=== PATIENT | female | born 1945 | race Caucasian/White ===

== ENCOUNTER 2016-04-21 10:37 | Emergency (ER) | payer MEDICARE, MEDICAID ==
[2016-04-21 10:47] VITALS: TEMP 97.8; BMI 34.9
[2016-04-21] MEDS ORDERED: NS 1,000 ML IV ONE (11:27)
[2016-04-21] MEDS ORDERED: ONDANSETRON HCL 4 MG/2 ML VIAL IV ONE (11:27)
[2016-04-21] MEDS ORDERED: MORPHINE 4 MG/ML INJECTION IV ONE (11:27)
[2016-04-21 12:00] LABS: MPV 8.4 fL (7.4-10.4)
[2016-04-21 12:10] LABS: BLOOD UREA NITROGEN 15 MG/DL (7-17); CALCIUM 9.4 MG/DL (8.4-10.2); CALCULATED OSMOLALITY 264 MOs/Kg (270-290); CHLORIDE 92 mEq/L (98-107); CPK TOTAL WITH POSSIBLE MB 27 IU/L (30-134); GLUCOSE 191 MG/DL (70-99); SODIUM LEVEL 134 mEq/L (137-146); TOTAL PROTEIN 7.9 G/DL (6.3-8.2)
[2016-04-21 12:11] LABS: PT-INR 1.2
[2016-04-21 12:44] LABS: SEG NEUTROPHIL 87 % (45-76); TOTAL CELL COUNT 100
--- NOTE | 2016-04-21 13:24 | DIRPT ---
CLINICAL DATA: Epigastric pain. nausea and vomiting. EXAM: CHEST 2 VIEW COMPARISON: None. FINDINGS: The heart size and mediastinal contours are within normal limits. Both lungs are clear. Mild lower thoracic spine degenerative disc disease noted. IMPRESSION: No active cardiopulmonary disease. Electronically Signed By: Brady Serna M.D. On: 04/21/2016 13:21
--- NOTE | 2016-04-21 13:36 | EDPRACDOC ---
<Braulio Kowlaski - Last Filed: 04/21/16 17:21> - General Information Information Source: Patient Mode Of Arrival: Ambulance - History of Present Illness Onset: last night HPI: PT PRESENTS WITH ABDOMINAL PAIN, NAUSEA AND VOMITING. STATES SHE ATE A HOT DOG LAST NIGHT (ALTHOUGH SHE KNOWS SHE SHOULDN'T EAT BC THEY UPSET HER STOMACH). SHE STATES AROUND 2AM SHE HAD NAUSEA AND THEN AROUND 6AM SHE BEGAN VOMITING AND HAS HAD MULTIPLE EPISODE OF VOMITING SINCE THAT TIME. PT WAS RECENTLY PLACED ON METFORMIN (3 WEEKS AGO) AND STATES THAT IN THE LAST WEEK SHE HAS BEEN HAVING LOW EPISODES WITH IN THE LAST WEEK. Symptoms Occured: Reports: Spontaneous Duration: Reports: Intermittent Emesis: Reports: Bilious Recent: Denies: Travel, Contact Exposure, Ingestion of ETOH, Ingestion of spoiled food, None, O Pain Quality: Reports: Aching, Burning Pain Severity: Moderate Pain Location: Reports: Epigastric : No History of: Denies: Abdominal Surgery, UTI, Ectopic, PID, Urolithiasis, Similar Pain (dx) Relevant History of: Denies: Abdominal Surgery, Diabetes, Contact Exposure, Hydrocephalus, HIV, Immunosuppression, Irritable Bowel Disease, Cystic Fibrosis , Lactose Intolerance, None, O Associated Signs & Symptoms: Reports: Nausea, Vomiting Oral Intake: Decreased Urinary Output: Normal <Hyacinth Pillai - Last Filed: 04/21/16 18:06> - General Information Chief Complaint: Nausea,Vomiting,Diarrhea Stated Complaint: RESP,GENERAL SICKNESS Time Seen by Provider: 04/21/16 10:41 Home Medications: Home Medications Atorvastatin Calcium [Lipitor] 10 mg PO QHS 01/05/16 Fluoxetine HCl [Prozac] 20 mg PO DAILY 01/05/16 Fluticasone Propionate [Flonase Allergy Relief] 1 spray JEROME DAILY PRN 01/05/16 Lisinopril/Hydrochlorothiazide [Lisinopril-Hctz 20-12.5 mg Tab] 2 tab PO DAILY 01/05/16 Meloxicam [Mobic] 7.5 mg PO DAILY 01/05/16 Alprazolam [Xanax] 0.5 - 1 mg PO Q8H PRN 04/21/16 Metformin HCl [Metformin HCl ER] 500 mg PO DAILY 04/21/16 Ondansetron [Zofran Odt] 4 mg PO Q6H PRN #20 tab.rapdis 04/21/16 Allergies/Adverse Reactions: Allergies Allergy/AdvReac Type Severity Reaction Status Date / Time codeine Allergy Itching Verified 04/21/16 10:47 - Treatment Prior to ED Arrival Reported Medications/Treatment HEALTH AND SAFETY COORDINATOR Treated With Medication HEALTH AND SAFETY COORDINATOR YES Medications HEALTH AND SAFETY COORDINATOR (Medication/ ZOFRAN 4 MG ORAL Dose/Time) <Braulio Kowalski - Last Filed: 04/21/16 17:21> - Treatment Prior to ED Arrival Reported Medications/Treatment HEALTH AND SAFETY COORDINATOR Treated With Medication HEALTH AND SAFETY COORDINATOR YES Medications HEALTH AND SAFETY COORDINATOR (Medication/ ZOFRAN 4 MG ORAL Dose/Time) <Hyacinth Pillai - Last Filed: 04/21/16 18:06> ED Past Medical History - History Reviewed Yes Nurses notes reviewed and agree except as marked - Patient Medical History Cardiac History: Reports: Hypertension, Hypercholesterolemia Respiratory History: Reports: COPD GI/ History: Reports: Diverticulosis Musculoskeletal History: Reports: Arthritis Psychological History: Reports: Anxiety. Denies: Depression Surgical History: Reports: Appendectomy, Cholecystectomy - Family Medical History Reports: Diabetes (mothers side of family), Cardiac Disorders (mother). Denies : Hypertension, Cancer, Stroke - Social Medical History Smoking Status: Never smoker <Hyacinth Pillai - Last Filed: 04/21/16 18:06> EDM Review of Systems - Review of Systems ROS Negative Except as Marked: Yes All systems reviewed and were negative except as marked <Hyacinth Pillai - Last Filed: 04/21/16 18:06> - Physical Exam Last recorded Vital Signs: Last Vital Signs Temp 97.8 F 04/21/16 10:43 Pulse 96 04/21/16 15:35 Resp 18 04/21/16 15:35 BP 152/71 04/21/16 15:00 Pulse Ox 92 04/21/16 15:35 Oxygen Pulse Oxygen Saturation 92 O2 Device Room Air Oxygen Flow Rate Fraction of Inspired Oxygen ( FIO2) <Braulio Kowalski - Last Filed: 04/21/16 17:21> - Physical Exam Constitutional: Alert. negative: Well appearing Oriented to: Time, Person, Place Last recorded Vital Signs: Last Vital Signs Temp 97.8 F 04/21/16 10:43 Pulse 88 04/21/16 12:58 Resp 18 04/21/16 12:58 BP 156/68 04/21/16 12:58 Pulse Ox 92 04/21/16 12:58 Oxygen Pulse Oxygen Saturation 92 O2 Device Room Air Oxygen Flow Rate Fraction of Inspired Oxygen ( FIO2) - HEENT Head: Normal ( normocephalic) Eye Exam: Normal (PERRL, EOMI, Sclera white) Oropharynx: Normal (Pharynx:Moist without exudate,Gums-no swelling) Nose: No Symptoms Reported (septum midline) Neck: Normal (FROM, trachea at midline) - Respiratory/Cardiovascular Respiratory: Normal - CTA (BBS clear to auscultation without adventitious sounds ) Cardiovascular: Normal (RRR without murmur, gallop or rub) - GI Auscultation: Normal (NABS) Palpation: Normal (Soft,No rebound or guarding, non distended) Tenderness: Diffuse, Mild Hills's Sign: Negative Rectal Exam: Deferred - Musculoskeletal Back: Normal (Non-Tender) Extremities: Normal (Normal tone, Pulses 2+ No cyanosis or edema, FROM) - Integumentary Skin: Normal, Warm, Dry Lymphatics: Normal (no adenopathy) - Neurologic Memory Impaired: Normal Motor Function: Normal (Normal tone, Pulses 2+ No cyanosis or edema, FROM) Cranial Nerve: Normal (CN II-X11 intact sensation, strength 5/5) Cerebellar: Normal Mood Description: Normal Perception: Normal <Hyacinth Pillai - Last Filed: 04/21/16 18:06> - Re-evaluation Re-evaluation 1 Re-evaluation Time: 17:21 PT DRINKING WATER, NO DISTRESS. ABD SOFT. DENIES EPIGASTRIC PAIN CURRENTLY. NOT FELT TO BE TORN ESOPHAGUS. - Results 04/21/16 11:53 04/21/16 11:53 WBC 22.0 xk/uL (3.8-10.8) H 04/21/16 11:53 RBC 6.04 xM/uL (4.20-5.40) H 04/21/16 11:53 Hgb 16.9 g/dL (12.0-16.0) H 04/21/16 11:53 Hct 50.8 % (36-47) H 04/21/16 11:53 MCV 84 fL (81-99) 04/21/16 11:53 MCH 28.0 pg (27-32) 04/21/16 11:53 MCHC 33.3 g/dl (33-36) 04/21/16 11:53 RDW 14.2 % (11.5-14.5) 04/21/16 11:53 Plt Count 331 xk/uL (130-400) 04/21/16 11:53 MPV 8.4 fL (7.4-10.4) 04/21/16 11:53 Neut % (Auto) Cancelled 04/21/16 11:53 Lymph % (Auto) Cancelled 04/21/16 11:53 [place] % (Auto) Cancelled 04/21/16 11:53 Eos % (Auto) Cancelled 04/21/16 11:53 Baso % (Auto) Cancelled 04/21/16 11:53 Absolute Neuts (auto) Cancelled 04/21/16 11:53 Absolute Lymphs (auto) Cancelled 04/21/16 11:53 Seg Neuts % (Manual) 87 % (45-76) H 04/21/16 11:53 Band Neutrophils % 7 % (0-5) H 04/21/16 11:53 Lymphocytes % (Manual) 5 % (17-44) L 04/21/16 11:53 Monocytes % (Manual) 0 % (0-10) 04/21/16 11:53 Basophils % (Manual) 1 % (0-2) 04/21/16 11:53 Absolute Neutrophils 20.68 xk/uL (1.7-8.2) H 04/21/16 11:53 Absolute Lymphocytes 1.10 xk/uL (0.65-4.75) 04/21/16 11:53 Vacuolated Neuts 1+ 04/21/16 11:53 Toxic Granulation 1+ 04/21/16 11:53 Platelet Estimate Norm (NORMAL) 04/21/16 11:53 RBC Morphology 1+ aniso 1+ polychrom 04/21/16 11:53 RBC Morphology 1+ aniso 1+ polychrom 04/21/16 11:53 PT 11.9 SEC (9.2-11.2) H 04/21/16 11:53 INR 1.2 04/21/16 11:53 APTT 28.0 SEC (22-35) 04/21/16 11:53 Puncture Site Right radial 04/21/16 13:40 pH 7.430 pH UNITS (7.35-7.45) 04/21/16 13:40 pCO2 45.0 mmHg (35-45) 04/21/16 13:40 pO2 62.0 mmHg (80-100) L 04/21/16 13:40 HCO3 29.9 MMOL/L (22-26) H 04/21/16 13:40 Total CO2 31.3 MMOL/L (23-27) H 04/21/16 13:40 Base Excess 4.8 (+/- 2) H 04/21/16 13:40 FiO2 % 21 04/21/16 13:40 Specimen Drawn By Spema 04/21/16 13:40 Sodium 134 mEq/L (137-146) L 04/21/16 11:53 Potassium 3.4 mEq/L (3.5-5.1) L 04/21/16 11:53 Chloride 92 mEq/L (98-107) L 04/21/16 11:53 Carbon Dioxide 28 mMOL/L (22-33) 04/21/16 11:53 Anion Gap 17 mEq/L (8-16) H 04/21/16 11:53 BUN 15 MG/DL (7-17) 04/21/16 11:53 Creatinine 0.60 MG/DL (0.52-1.04) 04/21/16 11:53 Estimated GFR (MDRD) > 60 mL/min (>=60) 04/21/16 11:53 Glucose 191 MG/DL (70-99) H 04/21/16 11:53 Calculated Osmolality 264 MOs/Kg (270-290) L 04/21/16 11:53 Lactic Acid 1.2 mEq/L (0.7-2.1) 04/21/16 11:53 Calcium 9.4 MG/DL (8.4-10.2) 04/21/16 11:53 Total Bilirubin 0.7 MG/DL (0.2-1.3) 04/21/16 11:53 AST 22 IU/L (14-36) 04/21/16 11:53 ALT 31 IU/L (9-52) 04/21/16 11:53 Alkaline Phosphatase 163 IU/L (55-165) 04/21/16 11:53 Creatine Kinase 27 IU/L (30-134) L 04/21/16 11:53 Troponin I < 0.01 ng/mL (<.04) 04/21/16 11:53 Dpm-M-Hlmhiahlgbu Pept 84 pg/mL (0-900) 04/21/16 11:53 Total Protein 7.9 G/DL (6.3-8.2) 04/21/16 11:53 Albumin 4.4 G/DL (3.5-5.0) 04/21/16 11:53 Urine Color Yellow 04/21/16 13:45 Urine Clarity Sl cldy 04/21/16 13:45 Urine pH 7.0 (5.0-8.0) 04/21/16 13:45 Ur Specific [place] 1.005 (1.003-1.035) 04/21/16 13:45 Urine Protein Neg (NEG/TRACE) 04/21/16 13:45 Urine Glucose (UA) Trace (NEGATIVE) 04/21/16 13:45 Urine Ketones 1+ (NEGATIVE) H 04/21/16 13:45 Urine Occult Blood Neg (NEG/TRACE) 04/21/16 13:45 Urine Nitrite Neg (NEGATIVE) 04/21/16 13:45 Urine Bilirubin Neg (NEGATIVE) 04/21/16 13:45 Urine Urobilinogen <2.0 MG/DL (0-1) 04/21/16 13:45 Ur Leukocyte Esterase Trace (NEGATIVE) H 04/21/16 13:45 Urine RBC 0-2 (0-5) 04/21/16 13:45 Urine WBC 0-2 (0-5) 04/21/16 13:45 Ur Epithelial Cells 2+ 04/21/16 13:45 Urine Mucus Occ (NEG/OCC) 04/21/16 13:45 Lab Results 04/21/16 04/21/16 04/21/16 13:45 13:40 11:53 WBC RBC Hgb Hct MCV MCH MCHC RDW Plt Count MPV Neut % (Auto) Lymph % (Auto) [place] % (Auto) Eos % (Auto) Baso % (Auto) Absolute Neuts (auto) Absolute Lymphs (auto) Seg Neuts % (Manual) Band Neutrophils % Lymphocytes % (Manual) Monocytes % (Manual) Basophils % (Manual) Absolute Neutrophils Absolute Lymphocytes Vacuolated Neuts Toxic Granulation Platelet Estimate RBC Morphology PT 11.9 H INR 1.2 APTT 28.0 Puncture Site Right radial pH 7.430 pCO2 45.0 pO2 62.0 L HCO3 29.9 H Total CO2 31.3 H Base Excess 4.8 H FiO2 % 21 Specimen Drawn By Spema Sodium Potassium Chloride Carbon Dioxide Anion Gap BUN Creatinine Estimated GFR (MDRD) Glucose Calculated Osmolality Lactic Acid Calcium Total Bilirubin AST ALT Alkaline Phosphatase Creatine Kinase Troponin I Xxg-L-Hhdyfaorqgp Pept Total Protein Albumin Urine Color Yellow Urine Clarity Sl cldy Urine pH 7.0 Ur Specific [place] 1.005 Urine Protein Neg Urine Glucose (UA) Trace Urine Ketones 1+ H Urine Occult Blood Neg Urine Nitrite Neg Urine Bilirubin Neg Urine Urobilinogen <2.0 Ur Leukocyte Esterase Trace H Urine RBC 0-2 Urine WBC 0-2 Ur Epithelial Cells 2+ Urine Mucus Occ 04/21/16 04/21/16 04/21/16 11:53 11:53 11:53 WBC 22.0 H RBC 6.04 H Hgb 16.9 H Hct 50.8 H MCV 84 MCH 28.0 MCHC 33.3 RDW 14.2 Plt Count 331 MPV 8.4 Neut % (Auto) Cancelled Lymph % (Auto) Cancelled [place] % (Auto) Cancelled Eos % (Auto) Cancelled Baso % (Auto) Cancelled Absolute Neuts (auto) Cancelled Absolute Lymphs (auto) Cancelled Seg Neuts % (Manual) 87 H Band Neutrophils % 7 H Lymphocytes % (Manual) 5 L Monocytes % (Manual) 0 Basophils % (Manual) 1 Absolute Neutrophils 20.68 H Absolute Lymphocytes 1.10 Vacuolated Neuts 1+ Toxic Granulation 1+ Platelet Estimate Norm RBC Morphology 1+ polychrom PT INR APTT Puncture Site pH pCO2 pO2 HCO3 Total CO2 Base Excess FiO2 % Specimen Drawn By Sodium 134 L Potassium 3.4 L Chloride 92 L Carbon Dioxide 28 Anion Gap 17 H BUN 15 Creatinine 0.60 Estimated GFR (MDRD) > 60 Glucose 191 H Calculated Osmolality 264 L Lactic Acid 1.2 Calcium 9.4 Total Bilirubin 0.7 AST 22 ALT 31 Alkaline Phosphatase 163 Creatine Kinase 27 L Troponin I < 0.01 Dhn-H-Uudekixcnoh Pept 84 Total Protein 7.9 Albumin 4.4 Urine Color Urine Clarity Urine pH Ur Specific [place] Urine Protein Urine Glucose (UA) Urine Ketones Urine Occult Blood Urine Nitrite Urine Bilirubin Urine Urobilinogen Ur Leukocyte Esterase Urine RBC Urine WBC Ur Epithelial Cells Urine Mucus <Braulio Kowalski - Last Filed: 04/21/16 17:21> - Differential Diagnosis Diabetes/DKA, Dehydration, Gastroenteritis - Results 04/21/16 11:53 04/21/16 11:53 WBC 22.0 xk/uL (3.8-10.8) H 04/21/16 11:53 RBC 6.04 xM/uL (4.20-5.40) H 04/21/16 11:53 Hgb 16.9 g/dL (12.0-16.0) H 04/21/16 11:53 Hct 50.8 % (36-47) H 04/21/16 11:53 MCV 84 fL (81-99) 04/21/16 11:53 MCH 28.0 pg (27-32) 04/21/16 11:53 MCHC 33.3 g/dl (33-36) 04/21/16 11:53 RDW 14.2 % (11.5-14.5) 04/21/16 11:53 Plt Count 331 xk/uL (130-400) 04/21/16 11:53 MPV 8.4 fL (7.4-10.4) 04/21/16 11:53 Neut % (Auto) Cancelled 04/21/16 11:53 Lymph % (Auto) Cancelled 04/21/16 11:53 [place] % (Auto) Cancelled 04/21/16 11:53 Eos % (Auto) Cancelled 04/21/16 11:53 Baso % (Auto) Cancelled 04/21/16 11:53 Absolute Neuts (auto) Cancelled 04/21/16 11:53 Absolute Lymphs (auto) Cancelled 04/21/16 11:53 Seg Neuts % (Manual) 87 % (45-76) H 04/21/16 11:53 Band Neutrophils % 7 % (0-5) H 04/21/16 11:53 Lymphocytes % (Manual) 5 % (17-44) L 04/21/16 11:53 Monocytes % (Manual) 0 % (0-10) 04/21/16 11:53 Basophils % (Manual) 1 % (0-2) 04/21/16 11:53 Absolute Neutrophils 20.68 xk/uL (1.7-8.2) H 04/21/16 11:53 Absolute Lymphocytes 1.10 xk/uL (0.65-4.75) 04/21/16 11:53 Vacuolated Neuts 1+ 04/21/16 11:53 Toxic Granulation 1+ 04/21/16 11:53 Platelet Estimate Norm (NORMAL) 04/21/16 11:53 RBC Morphology 1+ aniso 1+ polychrom 04/21/16 11:53 RBC Morphology 1+ aniso 1+ polychrom 04/21/16 11:53 PT 11.9 SEC (9.2-11.2) H 04/21/16 11:53 INR 1.2 04/21/16 11:53 APTT 28.0 SEC (22-35) 04/21/16 11:53 Sodium 134 mEq/L (137-146) L 04/21/16 11:53 Potassium 3.4 mEq/L (3.5-5.1) L 04/21/16 11:53 Chloride 92 mEq/L (98-107) L 04/21/16 11:53 Carbon Dioxide 28 mMOL/L (22-33) 04/21/16 11:53 Anion Gap 17 mEq/L (8-16) H 04/21/16 11:53 BUN 15 MG/DL (7-17) 04/21/16 11:53 Creatinine 0.60 MG/DL (0.52-1.04) 04/21/16 11:53 Estimated GFR (MDRD) > 60 mL/min (>=60) 04/21/16 11:53 Glucose 191 MG/DL (70-99) H 04/21/16 11:53 Calculated Osmolality 264 MOs/Kg (270-290) L 04/21/16 11:53 Lactic Acid 1.2 mEq/L (0.7-2.1) 04/21/16 11:53 Calcium 9.4 MG/DL (8.4-10.2) 04/21/16 11:53 Total Bilirubin 0.7 MG/DL (0.2-1.3) 04/21/16 11:53 AST 22 IU/L (14-36) 04/21/16 11:53 ALT 31 IU/L (9-52) 04/21/16 11:53 Alkaline Phosphatase 163 IU/L (55-165) 04/21/16 11:53 Creatine Kinase 27 IU/L (30-134) L 04/21/16 11:53 Troponin I < 0.01 ng/mL (<.04) 04/21/16 11:53 Nwx-A-Vpmkwnfjlgk Pept 84 pg/mL (0-900) 04/21/16 11:53 Total Protein 7.9 G/DL (6.3-8.2) 04/21/16 11:53 Albumin 4.4 G/DL (3.5-5.0) 04/21/16 11:53 Lab Results 04/21/16 04/21/16 04/21/16 11:53 11:53 11:53 WBC 22.0 H RBC 6.04 H Hgb 16.9 H Hct 50.8 H MCV 84 MCH 28.0 MCHC 33.3 RDW 14.2 Plt Count 331 MPV 8.4 Neut % (Auto) Cancelled Lymph % (Auto) Cancelled [place] % (Auto) Cancelled Eos % (Auto) Cancelled Baso % (Auto) Cancelled Absolute Neuts (auto) Cancelled Absolute Lymphs (auto) Cancelled Seg Neuts % (Manual) 87 H Band Neutrophils % 7 H Lymphocytes % (Manual) 5 L Monocytes % (Manual) 0 Basophils % (Manual) 1 Absolute Neutrophils 20.68 H Absolute Lymphocytes 1.10 Vacuolated Neuts 1+ Toxic Granulation 1+ Platelet Estimate Norm RBC Morphology 1+ polychrom PT 11.9 H INR 1.2 APTT 28.0 Sodium Potassium Chloride Carbon Dioxide Anion Gap BUN Creatinine Estimated GFR (MDRD) Glucose Calculated Osmolality Lactic Acid 1.2 Calcium Total Bilirubin AST ALT Alkaline Phosphatase Creatine Kinase Troponin I Uyg-F-Njdwyxsvwqk Pept Total Protein Albumin 04/21/16 11:53 WBC RBC Hgb Hct MCV MCH MCHC RDW Plt Count MPV Neut % (Auto) Lymph % (Auto) [place] % (Auto) Eos % (Auto) Baso % (Auto) Absolute Neuts (auto) Absolute Lymphs (auto) Seg Neuts % (Manual) Band Neutrophils % Lymphocytes % (Manual) Monocytes % (Manual) Basophils % (Manual) Absolute Neutrophils Absolute Lymphocytes Vacuolated Neuts Toxic Granulation Platelet Estimate RBC Morphology PT INR APTT Sodium 134 L Potassium 3.4 L Chloride 92 L Carbon Dioxide 28 Anion Gap 17 H BUN 15 Creatinine 0.60 Estimated GFR (MDRD) > 60 Glucose 191 H Calculated Osmolality 264 L Lactic Acid Calcium 9.4 Total Bilirubin 0.7 AST 22 ALT 31 Alkaline Phosphatase 163 Creatine Kinase 27 L Troponin I < 0.01 Alj-J-Oquzayyinjy Pept 84 Total Protein 7.9 Albumin 4.4 - EKG EKG #1 EKG Time: 11:38 -: Yes EKG interpreted by me Rate: bpm: 81 [place]: RAD Rhythm: NSR, PACs Block: None Hypertrophy: None ST: Old, Ant, Infarct <Hyacinth Pillai - Last Filed: 04/21/16 18:06> - Departure Yes I personally saw and evaluated the patient. <Braulio Kowalski - Last Filed: 04/21/16 17:21> Decision Time to Discharge: 18:05 - Departure Disposition: Home Education/Counseling Given To: Patient Education/Counseling Given Regarding: Diagnosis, Treatment, Prognosis, Follow Up <Hyacinth Pillai - Last Filed: 04/21/16 18:06> - Departure Condition: Stable Final Diagnosis: Nausea and vomiting Instructions: Acute Nausea and Vomiting (ED) Referrals: Hubert Barraza MD [Primary Care Provider] - One Week Prescriptions: Ondansetron [Zofran Odt] 4 mg PO Q6H PRN #20 tab.rapdis PRN Reason: Nausea/Vomiting Additional Instructions: CONTINUE TAKING MEDICATIONS PRESCRIBED. MAKE A FOLLOW UP APPOINTMENT WITH PCP AND DR CORONA. RETURN TO THE ED FOR WORSENING SYMPTOMS OR CONCERNS
[2016-04-21 13:41] LABS: ALLEN'S TEST PASS; BEb 4.8 (+/- 2); TCO2 31.3 MMOL/L (23-27)
[2016-04-21 13:42] LABS: ABG Draw Site Right Radial; ABG Draw Tech SPEMA
[2016-04-21 14:21] LABS: LEUKOCYTES/URINE TRACE (NEGATIVE); NITRITE/URINE NEG (NEGATIVE); URINE OCCULT BLOOD NEG (NEG/TRACE)
[2016-04-21 14:22] LABS: RBC/URINE 0-2 (0-5); WBC/URINE 0-2 (0-5)
[2016-04-21] MEDS ORDERED: Pharmacy Review for Metformin - IV Contrast Given SCH (15:00)
--- NOTE | 2016-04-21 15:54 | DIRPT ---
CLINICAL DATA: Nausea and vomiting. Epigastric pain starting at 2 a.m. today. Intermittent similar episodes for the past week. EXAM: CT ABDOMEN AND PELVIS WITH CONTRAST TECHNIQUE: Multidetector CT imaging of the abdomen and pelvis was performed using the standard protocol following bolus administration of intravenous contrast. CONTRAST: 100 cc Isovue 370 COMPARISON: 04/21/2016 chest radiographs. Esophagram from 01/23/2016 FINDINGS: Lower chest: Markedly severe wall thickening of the distal esophagus, single esophageal wall thickness 1.6 cm, with accentuated mucosal enhancement and fluid density in the distal esophagus. Esophagus tapers at the gastroesophageal junction. Hepatobiliary: Unremarkable Pancreas: Unremarkable Spleen: Unremarkable Adrenals/Urinary Tract: Fullness of the left adrenal gland, 2.2 by 2.0 cm, enhancement characteristics nonspecific. Otherwise unremarkable. Stomach/Bowel: Sigmoid colon diverticulosis without active diverticulitis. Appendix not well seen. Vascular/Lymphatic: Aortoiliac atherosclerotic vascular disease. 9 mm gastrohepatic ligament lymph node, image 17 series 3. Reproductive: Unremarkable Other: No supplemental non-categorized findings. Musculoskeletal: Markedly severe osteoarthritis of both hips. IMPRESSION: 1. Markedly severe esophageal wall thickening, closely low-density, with internal fluid and tapering at the gastroesophageal junction. On prior esophagram there was dilation of the distal esophagus almost reminiscent of achalasia about the wall thickening is much greater than I would expect in the achalasia and lower in density. Differential diagnostic considerations might include markedly severe esophagitis, esophageal injury (correlate with any retching or other risk factors for esophageal tear), or esophageal malignancy such as lymphoma or carcinoma. Consider endoscopy. 2. Nonspecific small left adrenal mass, 2.2 by 2.0 cm. Although possibly an adenoma the enhancement and delayed imaging characteristics do not allow for specific categorization as adenoma. If clinically warranted this could be further worked up with adrenal protocol MRI. 3. Borderline enlarged lymph node in the gastrohepatic ligament. 4. Aortoiliac atherosclerotic vascular disease. 5. Sigmoid diverticulosis without active diverticulitis. 6. Markedly severe osteoarthritis of both hips. Electronically Signed By: Rosas Jama M.D. On: 04/21/2016 15:51
[2016-04-21 18:44] VITALS: BP 149/70; PULSE 91
== END 2016-04-21 18:35 | disposition home or self-care (01) ==
LOC: ED 10:37
DX: R11.2 Nausea with vomiting, unspecified (principal)
CPT/HCPCS: 36415; 36600; 71020; 74177; 80053; 81001; 82550; 82803; 83605; 83880; 84484; 85007; 85027; 85610; 85730; 87040; 93005; 96361; 96374; 96375; 99284; A9698; J2270; J2405